=== PATIENT | male | born 1945 | race Caucasian/White ===

== ENCOUNTER 2022-02-17 14:00 | Emergency (ER) | payer OTHER, MEDICARE ==
[~2022-02-17] VITALS: Ht 213.3 cm; Wt 70.8 kg
[2022-02-17] MEDS ORDERED: CYCLOBENZAPRINE10 MG PO (16:10)
== END 2022-02-17 16:22 | disposition home or self-care (01) ==
LOC: ED 14:00
DX: S16.1XXA Strain of muscle, fascia and tendon at neck level, initial encounter (principal); S09.90XA Unspecified injury of head, initial encounter; V43.52XA Car driver injured in collision with other type car in traffic accident, initial encounter; Y93.89 Activity, other specified; Y92.89 Other specified places as the place of occurrence of the external cause; Y99.8 Other external cause status